=== PATIENT | female | born 1955 | race American Indian/Alaskan Native ===

== ENCOUNTER 2017-11-11 09:35 | Outpatient (CLI) | payer BC ==
--- NOTE | 2017-11-12 13:36 | Mammography Report ---
BILATERAL DIGITAL SCREENING MAMMOGRAM with CAD: 11/11/17 09:35:00 CLINICAL: Routine screening. COMPARISON:01/06/16 FINDINGS: The breasts are almost entirely fatty.The previously described lobular shaped upper and are right breast mass is only identified on the MLO view and is unchanged. No new mass, architectural distortion or suspicious calcifications. IMPRESSION: No mammographic evidence of malignancy. BI-RADS CATEGORY: 2 -- Benign RECOMMENDATION: Routine mammographic screening in one year. COMMENT: Patient follow-up letters are generated by our [employer] application.
== END 2017-11-11 09:36 | disposition home or self-care (01) ==
LOC: MAMMO 09:35
PROVIDERS: ATTEND Nurse Practitioner
DX: Z12.31 Encounter for screening mammogram for malignant neoplasm of breast (principal)
CPT/HCPCS: 77067

== ENCOUNTER 2020-03-19 11:42 | Emergency (ER) | payer BC ==
[2020-03-19 16:37] VITALS: BP 125/82
--- NOTE | 2020-03-19 16:44 | Emergency Department Report ---
Minor Respiratory - HPI Chief Complaint: Abdominal Pain Stated Complaint: COUGHING Time Seen by Provider: 03/19/20 16:35 Duration: 2 Days Severity: moderate Minor Respiratory: Yes Able to Tolerate Fluids, Yes Cough, No Rhinorrhea, No Sore Throat, No Ear Pain, No Sick Contacts, No Hemoptysis, No Chest Pain, No Shortness of Breath, No Fever Other History: this is a 64-year-old female presents to ED complaining of dry intermittent coughing that is worsening for the past 2 days. Patient states she has not been around anyone that has been sick. Patient describes cough as intermittent as causing her chest pain with coughing. Patient denies any fever that she can recall, Shortness of breath. ED Review of Systems ROS: Stated complaint: COUGHING Other details as noted in HPI Comment: All other systems reviewed and negative ED Past Medical Hx - Past Medical History Previous Medical History?: Yes Hx Hypertension: Yes - Surgical History Past Surgical History?: No - Social History Smoking Status: Never Smoker Substance Use Type: None - Medications Home Medications: Home Medications Medication Instructions Recorded Confirmed Last Taken Type Azithromycin [Zithromax TAB] 500 mg PO QDAY #7 tablet 03/19/20 Unknown Rx Benzonatate [Tessalon Perles] 100 mg PO Q8HR #20 capsule 03/19/20 Unknown Rx Minor Respiratory Exam - Exam General: Vital signs noted. No distress. Alert and acting appropriately. HEENT: Yes Moist Mucous Membranes, No Pharyngeal Erythema, No Pharyngeal Exudates, No Rhinorrhea, No Conjuctival Injection, No Frontal Tenderness, No Maxillary Tenderness Ear: Neither TM Bulge, Neither TM Erythema, Neither EAC Pain, Neither EAC Discharge Neck: Yes Supple, No Adenopathy Lungs: Yes Good Air Exchange, No Wheezes, No Ronchi, No Stridor, No Cough, No Labored Respirations, No Retractions, No Use of Accessory Muscles, No Other Abnormal Lung Sounds Heart: Yes Regular, No Murmur Abdomen: Yes Normal Bowel Sounds, No Tenderness, No Peritoneal Signs Skin: No Rash, No Edema Neurologic: Alert and oriented, no deficits. Musculoskeletal: Unremarkable. ED Medical Decision Making - Lab Data Temp Pulse Resp BP Pulse Ox 100.4 F H 98 H 18 125/82 92 03/19/20 11:47 03/19/20 11:47 03/19/20 11:47 03/19/20 11:47 03/19/20 11:47 - Radiology Data Radiology results: report reviewed, image reviewed CHEST 2 VIEWS INDICATION / CLINICAL INFORMATION: cough. COMPARISON: None available. FINDINGS: SUPPORT DEVICES: None. HEART / MEDIASTINUM: No significant abnormality. LUNGS / PLEURA: There are patchy bilateral pulmonary opacities. No pneumothorax. ADDITIONAL FINDINGS: No significant additional findings. IMPRESSION: 1. Patchy bilateral pulmonary opacities that could reflect developing pneumonia. Signer Name: Aldo Godoy MD Signed: 03/19/2020 5:25 PM Workstation Name: [id number] Transcribed By: CONI Dictated By: Aldo Godoy MD Electronically Authenticated By: Aldo Godoy MD Signed Date/Time: 03/19/20 9725 - Medical Decision Making 64-year-old female presents with bronchitis secondary to possible pneumonia. Chest x-ray shows patchy infiltrates suggestive of pneumonia. I discussed findings with the patient. Patient none none respiratory distress in the ED. Discussed treatment with the patient. Discussed with patient to follow-up with primary care physician within a week. Discussed with patient if she has any worsening symptoms or new symptoms she may return to the ED immediately. Patient vital signs are stable and she understands instructions Critical care attestation.: If time is entered above; I have spent that time in minutes in the direct care of this critically ill patient, excluding procedure time. ED Disposition Clinical Impression: Acute bronchitis, Pneumonia Disposition: -01 TO HOME OR SELFCARE Is pt being admited?: No Does the pt Need Aspirin: No Condition: Stable Instructions: Acute Bronchitis, Adult, Community-Acquired Pneumonia, Adult, [id number], Acute Bronchitis (ED), Bacterial Pneumonia (ED), Abdominal Pain (ED) Additional Instructions: Make sure to follow up with the primary care physician as discussed. Take all your medications as you've been prescribed. Take Tylenol as needed for pain or fever If you have any worsening symptoms or develop new symptoms please return to ED immediately. Prescriptions: Benzonatate [Tessalon Perles] 100 mg PO Q8HR #20 capsule Azithromycin [Zithromax TAB] 500 mg PO QDAY #7 tablet Referrals: VÍCTOR MOREL JR, MD [Primary Care Provider] - 3-5 Days Forms: Work/School Release Form(ED) Time of Disposition: 17:52
--- NOTE | 2020-03-19 17:30 | XRay Report ---
CHEST 2 VIEWS INDICATION / CLINICAL INFORMATION: cough. COMPARISON: None available. FINDINGS: SUPPORT DEVICES: None. HEART / MEDIASTINUM: No significant abnormality. LUNGS / PLEURA: There are patchy bilateral pulmonary opacities. No pneumothorax. ADDITIONAL FINDINGS: No significant additional findings. IMPRESSION: 1. Patchy bilateral pulmonary opacities that could reflect developing pneumonia. Signer Name: Aldo Godoy MD Signed: 03/19/2020 5:25 PM Workstation Name: [id number]
== END 2020-03-19 17:52 | disposition home or self-care (01) ==
LOC: ED 11:42
DX: J40 Bronchitis, not specified as acute or chronic (principal); J18.9 Pneumonia, unspecified organism; I10 Essential (primary) hypertension; Z79.899 Other long term (current) drug therapy
CPT/HCPCS: 71046; 99283